=== PATIENT | female | born 1965 | race Hispanic/Latino ===

== ENCOUNTER 2016-12-02 12:30 | Day surgery (SDC) | payer BC ==
[~2016-12-02] VITALS: Ht 154.9 cm; Wt 69.9 kg
[~2016-12-02 12:30] MED LIST: AMOXICILLIN500 MG PO; AUGMENTIN500TAB PO; CIPROFLOXACN500 MG PO; CLARITIN10 M1 PO
[2016-12-02 16:05] VITALS: BP 108/63
== END 2016-12-02 16:25 | disposition home or self-care (01) | DRG 951 ==
LOC: ENDO 12:30
PROVIDERS: ATTEND Internal Medicine Gastroenterology
PROC: 0DBH8ZX Excision of Cecum, Via Natural or Artificial Opening Endoscopic, Diagnostic (ICD-10-PCS; principal; 2016-12-02)
DX: Z12.11 Encounter for screening for malignant neoplasm of colon (principal); D12.0 Benign neoplasm of cecum; K64.4 Residual hemorrhoidal skin tags; K64.8 Other hemorrhoids; R10.13 Epigastric pain; R14.0 Abdominal distension (gaseous)